=== PATIENT | female | born 1950 | race Asian ===

== ENCOUNTER 2021-06-22 08:57 | Day surgery (SDC) | payer MEDICARE, OTHER ==
[2021-06-20 11:20] LABS: COVID AG,FIA SOURCE NASOPHARYNGEAL
[~2021-06-22] VITALS: Ht 147.3 cm; Wt 50.0 kg
[~2021-06-22 08:57] MED LIST: KETOROLAC TROMETHAMINE 0.5% 5 ML OPHTHALMIC SOLUTION ONE; MOXIFLOXACIN HCL 0.5% 3 ML OPHTHALMIC SOLUTION ONE; PHENYLEPHRINE HCL 2.5% 2 ML OPHTHALMIC SOLUTION ONE; RINGERS SOLUTION,LACTATED 500 ML IV ONE; TROPICAMIDE 1% 2 ML OPHTHALMIC SOLUTION ONE
[2021-06-22] MEDS ORDERED: CHONDR SULF A SOD/HYALURONATE 1.05 ML KIT IO ONE (08:58)
[2021-06-22] MEDS ORDERED: LIDOCAINE/PF 1% 2 ML VIAL CAUDAL ONE (08:58)
[2021-06-22] MEDS ORDERED: TETRACAINE HCL/PF 0.5% 4 ML OPHTHALMIC SOLUTION OD ONE (08:58)
[2021-06-22] MEDS ORDERED: MIDAZOLAM HCL 2 MG/2 ML VIAL IVP ONE (08:58)
[2021-06-22] MEDS ORDERED: POVIDONE-IODINE 10% 15 ML SOLUTION UD TP ONE (08:58)
[2021-06-22] MEDS ORDERED: EPINEPHrine 1:1,000 [1 MG/ML] AMP ET ONE (08:58)
[2021-06-22] MEDS ORDERED: FentaNYL CITRATE PF 100 MCG/2 ML VIAL IVP ONE (08:58)
[2021-06-22] MEDS: KETOROLAC TROMETHAMINE 0.5% 5 ML OPHTHALMIC SOLUTION OS SCH ×3 (10:21→10:34)
[2021-06-22] MEDS: MOXIFLOXACIN HCL 0.5% 3 ML OPHTHALMIC SOLUTION OS SCH ×3 (10:22→10:34)
[2021-06-22] MEDS: TROPICAMIDE 1% 2 ML OPHTHALMIC SOLUTION OS SCH ×3 (10:22→10:34)
[2021-06-22] MEDS: PHENYLEPHRINE HCL 2.5% 2 ML OPHTHALMIC SOLUTION OS SCH ×3 (10:22→10:34)
[2021-06-22] MEDS ORDERED: RINGERS SOLUTION,LACTATED 500 ML IV ONE (10:30)
[2021-06-22] MEDS ORDERED: EZET10TA57 PO (10:43)
[2021-06-22] MEDS ORDERED: CALC-1038 PO (10:43)
[2021-06-22] MEDS ORDERED: OMEG10005 PO (10:43)
[2021-06-22] MEDS ORDERED: ASPI-1444 PO (10:43)
[2021-06-22] MEDS ORDERED: BOSW1POW MC (10:43)
[2021-06-22] MEDS ORDERED: ASCO500 PO (10:43)
== END 2021-06-22 14:00 | disposition home or self-care (01) ==
LOC: SURGERY 08:57
PROVIDERS: ATTEND Ophthalmology
DX: H25.12 Age-related nuclear cataract, left eye (principal); Z88.8 Allergy status to other drugs, medicaments and biological substances; Z87.891 Personal history of nicotine dependence; Z98.890 Other specified postprocedural states; M81.8 Other osteoporosis without current pathological fracture; Z79.899 Other long term (current) drug therapy
CPT/HCPCS: 66984; 87426; 93005; C9803; J0171; J2250; J3010; J3490; J7120; Q9967; V2632